=== PATIENT | male | born 1980 | race Caucasian/White ===

== ENCOUNTER → 2023-12-11 | Emergency (ER) | payer BC, OTHER ==
[~2023-12-11] MED LIST: CYCLOBENZAPRINE 10 MG TAB ONE; DERMABOND SKIN ADHESIVE TOP ONE; KETOROLAC 30 MG/ML INJ ONE; TDAP (DIPHTH,PERTUSS(ACELL),TET VAC) 0.5 ML VIAL IMVAC ONE
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
[2023-12-11 08:37] LABS: Absolute Basophils 0.1 K/uL (0-0.5); Absolute Eosinophils 0.2 K/uL (0-0.5); Absolute Lymphocytes (CBC) 1.4 K/uL (0.7-4.9); Absolute Monocytes 1.2 K/uL (0.1-1.3); Absolute Neutrophil 9.8 K/uL (1.8-8.0); Basophils % 0.5 % (0-1.3); Eosinophils % 1.3 % (0-4.4); Hemoglobin 14.4 g/dL (13.6-17.9); Lymphocytes % 11.1 % (15.3-44.8); MCH 28.5 pg (27.0-35.0); MCHC 32.8 g/dL (32.0-36.0); MCV 86.9 fL (80-100); MPV 8.5 fL (7.6-11.3); Monocytes % 9.6 % (3.3-12.3); Neutrophils % 77.5 % (41.7-73.7); Platelets 277 thou/uL (152-406); RBC Red Blood Cell Count 5.06 M/uL (4.33-5.43); Red Cell Distribution Width 13.6 % (12.1-15.2)
[2023-12-11 08:45] LABS: Anion Gap 9.8 mEq/L (5.0-15.0); Potassium 3.8 mEq/L (3.5-5.1)
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
[2023-12-11 10:56] VITALS: BP 129/89; TEMP 97.9; O2SAT 99
== END ==
LOC: ER 07:37
PROC: 0HQ1XZZ Repair Face Skin, External Approach (ICD-10-PCS; principal; 2023-12-11)
DX: S01.411A Laceration without foreign body of right cheek and temporomandibular area, initial encounter (principal); V54.5XXA Driver of pick-up truck or van injured in collision with heavy transport vehicle or bus in traffic accident, initial encounter
CPT/HCPCS: 36415; 70450; 71045; 72125; 80048; 85025; 86850; 86900; 86901; 96372; 96374; 99285